=== PATIENT | female | born 1990 | race Caucasian/White ===

== ENCOUNTER → 2022-08-27 | Outpatient (CLI) | payer OTHER ==
[2022-08-27 16:19] LABS: HEMATOCRIT 39.8 % (36.0-47.0); HEMOGLOBIN 13.2 g/dl (12.0-15.5); MEAN CORPUSCULAR HEMOGLOBIN 27.8 pg (27.0-33.0); MEAN CORPUSCULAR HGB CONC 33.2 g/dl (32.0-36.5); PLATELET COUNT, AUTOMATED 308 10^3/uL (150-450); RED BLOOD COUNT 4.74 10^6/uL (4.00-5.40); WHITE BLOOD COUNT 7.3 10^3/uL (4.0-10.0)
[2022-08-27 16:25] LABS: APPEARANCE, URINE CLEAR (CLEAR); BACTERIA, URINE AUTO 1+ (NEGATIVE); BILIRUBIN, URINE AUTO NEGATIVE (NEGATIVE); BLOOD, URINE BLOOD NEGATIVE (NEGATIVE); COLOR, URINE STRAW (YELLOW); GLUCOSE, URINE (UA) AUTO NEGATIVE (NEGATIVE); KETONE, URINE AUTO NEGATIVE (NEGATIVE); LEUKOCYTE ESTERASE, URINE AUTO NEGATIVE (NEGATIVE); NITRITE, URINE AUTO NEGATIVE (NEGATIVE); PROTEIN, URINE AUTO NEGATIVE (NEGATIVE); RBC, URINE AUTO 1 /HPF (0-3); SPECIFIC GRAVITY URINE AUTO 1.008 (1.002-1.035); SQUAMOUS EPITHELIAL CELL UR AU 0 /HPF (0-6); UROBILINOGEN, URINE AUTO 0.2 mg/dL (0.0-2.0); WBC, URINE AUTO 0 /HPF (0-3)
[2022-08-27 16:36] LABS: IRON (FE) 68 UG/DL (50-170); PERCENT SATURATION 21.3 % (13.2-45.0); TOTAL IRON BINDING CAPACITY 319 UG/DL (250-425)
[2022-08-27 16:37] LABS: ALBUMIN 3.8 G/DL (3.2-5.2); BLOOD UREA NITROGEN 13 MG/DL (9-23); CALCIUM LEVEL 8.9 MG/DL (8.5-10.1); CARBON DIOXIDE LEVEL 26 MMOL/L (20-31); CHLORIDE LEVEL 103 MMOL/L (98-107); CREATININE FOR GFR 0.62 MG/DL (0.55-1.30); GLOMERULAR FILTRATION RATE > 60.0 (>60); GLUCOSE, FASTING 83 MG/DL (60-100); PHOSPHORUS LEVEL 5.2 MG/DL (2.5-4.9); POTASSIUM SERUM 4.4 MMOL/L (3.5-5.1); SODIUM LEVEL 135 MMOL/L (136-145)
[2022-08-27 16:41] LABS: FREE T4 0.99 NG/DL (0.89-1.76)
[2022-08-27 16:43] LABS: FERRITIN 42.4 NG/ML (7.3-270.7); THYROID STIMULATING HORMONE 2.803 uIU/ML (0.55-4.78)
[2022-08-27 16:54] LABS: HEPATITIS B SURFACE ANTIGEN NEGATIVE (NEGATIVE)
[2022-08-27 17:14] LABS: HEPATITIS B CORE ANTIBODY IGM NEGATIVE (NEGATIVE); HEPATITIS C VIRUS ABY INDEX 0.2 INDEX (<0.8)
== END ==
LOC: M PLALAB 12:28
PROVIDERS: ATTEND Physician Assistant
DX: Z02.2 Encounter for examination for admission to residential institution (principal); D50.9 Iron deficiency anemia, unspecified

== ENCOUNTER → 2022-09-26 | Outpatient (CLI) | payer OTHER ==
[~2022-09-26] MED LIST: ALPR0.25 PO; BUPR1FIL; CETI-24; CLON0.2T PO; CLONI1TA PO; CYCL-707 PO; DOCU100C16; ELIQ5TAB; HYDR50CA2; LIDO5DIS41 TD; NICO21DI37; NICO4GUM41; ONDA8TAB8; PRED20TA PO; PROHANCE 279.3MG/ML 15ML VIAL As Ordered ONE; REME45TA2 PO; TOPI100T9
== END ==
LOC: M RAD 15:37
PROVIDERS: ATTEND Specialist
DX: C96.6 Unifocal Langerhans-cell histiocytosis (principal); D35.4 Benign neoplasm of pineal gland
CPT/HCPCS: 70553; A9576

== ENCOUNTER 2022-09-29 12:21 | Emergency (ER) | payer OTHER ==
[~2022-09-29] VITALS: Ht 170.2 cm; Wt 115.5 kg
[~2022-09-29 12:21] MED LIST changes: -CYCL-707 PO; -LIDO5DIS41 TD; -PRED20TA PO; -PROHANCE 279.3MG/ML 15ML VIAL As Ordered ONE
[2022-09-29] MEDS ORDERED: LIDOCAINE 5% (LIDODERM) PATCH TD ONE (13:05)
[2022-09-29 14:57] LABS: INR 0.87
[2022-09-29] MEDS ORDERED: ISOVUE-370 76% 100ML VIAL As Ordered ONE (14:57)
[2022-09-29 14:58] LABS: PARTIAL THROMBOPLASTIN TIME 37.5 SECONDS (24.8-34.2)
[2022-09-29 15:06] LABS: BASO # 0.1 10^3/uL (0.0-0.2); BASO % 0.7 % (0.0-1.0); EOS # 0.3 10^3/uL (0.0-0.5); EOS % 4.8 % (0.0-3.0); HEMATOCRIT 36.6 % (36.0-47.0); LYMPH # 2.8 10^3/uL (1.5-5.0); MEAN CORPUSCULAR HEMOGLOBIN 27.6 pg (27.0-33.0); MEAN CORPUSCULAR HGB CONC 32.8 g/dl (32.0-36.5); MEAN CORPUSCULAR VOLUME 84.1 fl (80.0-96.0); MONO # 0.5 10^3/uL (0.0-0.8); MONO % 7.1 % (2.0-8.0); PLATELET COUNT, AUTOMATED 304 10^3/uL (150-450); RED BLOOD COUNT 4.35 10^6/uL (4.00-5.40); WHITE BLOOD COUNT 6.7 10^3/uL (4.0-10.0)
[2022-09-29 15:19] LABS: ERYTHROCYTE SEDIMENTATION RATE 10 mm/hr (0-20)
[2022-09-29 15:28] LABS: C REACTIVE PROTEIN QUANTITATIV < 0.40 MG/DL (<1.0)
[2022-09-29 15:39] LABS: ALBUMIN 3.5 G/DL (3.2-5.2); ALKALINE PHOSPHATASE 111 U/L (46-116); ALT/SGPT 19 U/L (7.0-40); AST/SGOT 34 U/L (<34); BILIRUBIN,DIRECT < 0.1 MG/DL (<0.4); BILIRUBIN,TOTAL 0.4 MG/DL (0.3-1.2); TOTAL PROTEIN 6.8 G/DL (5.7-8.2)
[2022-09-29] MEDS ORDERED: CYCL-707 PO (15:49)
[2022-09-29] MEDS ORDERED: PRED20TA PO (15:49)
[2022-09-29] MEDS ORDERED: LIDO5DIS41 TD (15:49)
[2022-09-29 16:07] VITALS: BP 117/77
== END 2022-09-29 16:08 | disposition home or self-care (01) ==
LOC: M ED 12:21
DX: M51.36 Other intervertebral disc degeneration, lumbar region (principal); M25.551 Pain in right hip; J45.909 Unspecified asthma, uncomplicated; K58.9 Irritable bowel syndrome, unspecified; F41.9 Anxiety disorder, unspecified; Z79.01 Long term (current) use of anticoagulants; Z86.711 Personal history of pulmonary embolism; Z88.2 Allergy status to sulfonamides; Z88.5 Allergy status to narcotic agent; Z79.899 Other long term (current) drug therapy
CPT/HCPCS: 36415; 72110; 72193; 73502; 73552; 80047; 80076; 83605; 84702; 85025; 85610; 85652; 85730; 86140; 99284; Q9967

== ENCOUNTER → 2022-10-17 | Outpatient (CLI) | payer OTHER ==
[~2022-10-17] MED LIST changes: +CYCL-707 PO; +LIDO5DIS41 TD; +PRAZ1CAP PO; +PRED20TA PO
== END ==
LOC: M PLARAD 13:13
PROVIDERS: ATTEND Specialist
DX: C96.6 Unifocal Langerhans-cell histiocytosis (principal)